=== PATIENT | male | born 1975 | race Caucasian/White ===

== ENCOUNTER 2025-02-11 12:12 | Emergency (ER) | payer OTHER, SELFPAY ==
--- NOTE | 2025-02-11 12:16 | XR_ITS ---
Examination: AP chest single view Technique one AP portable semiupright chest single view Date and time: February 11, 2025 at 1308 hrs. Comparison May 31, 2012 Indications: Shortness of breath today. Findings: Mild prominence left ventricle No pneumonia or pulmonary edema The osseous structures are intact Impression: No active disease
[2025-02-11 12:20] VITALS: BP 104/63; PULSE 66; RESP 16; TEMP 36.9; O2SAT 95; BMI 31.4
[2025-02-11] MEDS: SODIUM CHLORIDE 0.9% 1000 ML 1,000 ML 999 ML IV (12:27)
[2025-02-11 12:29] VITALS: PULSE 70; RESP 18; O2SAT 97
[2025-02-11 12:49] LABS: Basophils # (Auto) 0.1 Thou/mm3 (0.0-0.2); Basophils % (Auto) 1 % (0-2.5); Eosinophils # (Auto) 0.3 Thou/mm3 (0.0-0.5); Eosinophils % (Auto) 4 % (0-10); Hematocrit 41.1 % (41.0-53.0); Hemoglobin 14.3 g/dL (13.5-16.0); Immature Granulocytes % (Auto) 0 % (0-0); Immature Granulocytes Auto 0.01 Thou/mm3 (0.00-0.00); Lymphocytes # (Auto) 2.9 Thou/mm3 (1.0-4.8); Lymphocytes % (Auto) 45 % (10-50); Mean Corpuscular HGB Conc 34.8 g/dl (31.0-37.0); Mean Corpuscular Volume 86 fL (80-100); Monocytes # (Auto) 0.4 Thou/mm3 (0.0-0.8); Monocytes % (Auto) 6 % (0-12); Neutrophils # (Auto) 2.8 Thou/mm3 (1.8-7.7); Neutrophils % (Auto) 44 % (37-80); Nucleated Red Blood Cell % 0 /100 WBC (0); Platelet Count 202 Thou/mm3 (140-440); RDW Standard Deviation 40.8 fL (35.1-43.9); Red Blood Count 4.76 Miln/mm3 (4.50-5.90); White Blood Count 6.4 Thou/mm3 (3.8-10.6)
[2025-02-11 13:03] LABS: B-Type Natriuretic Peptide < 20 pg/mL (0-100)
[2025-02-11 13:05] LABS: Alanine Aminotransferase 22 U/L (10-49); Albumin, Serum 4.6 gm/dL (3.5-5.0); Albumin/Globulin Ratio 2.9 (1.2-2.2); Alkaline Phosphatase 77 U/L (46-116); Anion Gap 11 (7-16); Aspartate Amino Transferase 25 U/L (0-34); BUN/Creatinine Ratio 12 Ratio (12-20); Bilirubin,Total 0.3 mg/dL (0.3-1.2); Blood Urea Nitrogen 14 mg/dL (9-23); Carbon Dioxide 25.3 mMol/L (20.0-31.0); Chloride 106 mMol/L (98-107); Creatinine (Component) 1.2 mg/dL (0.6-1.3); Estimated Creatinine Clearance 94.9 mL/min (>60); Globulin 1.6 gm/dL (2.3-3.5); Glucose 138 mg/dL (74-106); Lipase 45 U/L (12-53); Magnesium 2.1 mg/dL (1.6-2.6); Osmolality,Calculated 285 (275-295); Potassium 4.3 mMol/L (3.4-5.1); Sodium 142 mMol/L (136-145); Total Protein 6.2 gm/dL (5.7-8.2); Troponin I < 0.020 ng/mL (0.0-0.045); eGFR > 60 See Note
--- NOTE | 2025-02-11 14:05 | PD.EDSYNC ---
ED Syncope RME/HPI General Chief Complaint: Syncope / Near Syncope Stated Complaint: SYNCOPAL EPISODE Time Seen by Provider: 02/11/25 12:16 Arrival date/time: 02/11/25 12:12 Limitations: no limitations RME / HPI RME / HPI narrative: 50-year-old male who is brought in by EMS after she had a syncopal episode while sitting down at a restaurant. He had no associated injuries. Patient has a history of hypertension but no other cardiovascular disease. He has no lower leg edema or shortness of breath. Has no abdominal pain, nausea, vomiting. He denies any headache, vision changes, or unilateral weakness. Patient states he drank quite a bit of alcohol last night but is had no vomiting and has no diarrhea. He had no falls or injuries. He states he normally drinks once or twice a week and when he does he has a glass of wine. He states he rarely gets intoxicated. He denies any recent surgery. Has had no recent travels. There are no other acute complaints. Related Data Home Medications ?Medication ?Instructions ?Recorded ?Confirmed hydrocodone 5 mg-acetaminophen 325 1 tab PO Q6H 05/09/19 mg tablet ([place]) lisinopril 20 mg tablet 20 mg PO QDAY 05/09/19 montelukast 10 mg tablet 10 mg PO QPM 05/09/19 Previous Rx's ?Medication ?Instructions ?Recorded cyclobenzaprine 10 mg tablet 10 mg PO Q8HR #20 tabs 05/09/19 ibuprofen 800 mg tablet 800 mg PO Q6HR #30 tabs 05/09/19 hydrocodone 5 mg-acetaminophen 325 1 tab PO BID PRN pain #10 tabs 01/21/ mg tablet Allergies Allergy/AdvReac Type Severity Reaction Status Date / Time naproxen sodium Allergy SWOLLEN LIP Verified 05/09/19 22:04 Review of Systems Review of Systems Systems Reviewed: All systems reviewed, normal except as documented ED Exam General Limitations: Present no limitations General appearance: Present alert and in no apparent distress Head Head exam: Present atraumatic Eye Eye exam: Present normal appearance, PERRL and EOMI ENT ENT exam: Present normal exam, normal oropharynx and mucous membranes moist Neck Neck exam: Present normal inspection, full ROM and trachea midline Chest Chest inspection: Present normal inspection and symmetric chest wall rise Respiratory Respiratory exam: Present normal lung sounds bilaterally Cardiovascular Cardiovascular exam: Present regular rate, normal rhythm and normal heart sounds Abdominal Exam Abdominal exam: Present soft and normal bowel sounds Extremities Exam Extremities exam: Present normal inspection and full ROM Back Exam Back exam: Present normal inspection and full ROM Neurological Exam Neurological exam: Present alert, oriented X3 and CN II-XII intact Psychiatric Psychiatric exam: Present normal affect and normal mood Skin Skin exam: Present warm, dry, intact and normal color Course Course Course Narrative: EMS reports the patient was hypotensive on scene and diaphoretic. He was answering questions appropriately. There is no evidence of injury. When patient arrived to the ER, he was given a fluid bolus and the workup was initiated. His CBC, CMP, BNP, EKG, troponin, are all unremarkable. His blood pressure has been stable throughout the ER course. He has no tachycardia and no dysrhythmia has been noted on the library aide. Patient was ambulating in the ER without assistance, his gait is stable. Case discussed with attending physician. Patient does have a primary care provider he can follow-up with. We discussed the need for outpatient workup including echocardiogram and carotid artery ultrasound. We discussed return precautions. Patient agrees to return as needed for any worsening changes or a repeat syncopal episode. Quality Measures none Orders Category Date Time Status EKG (ED ONLY) *Do not use* NOW Care 02/11/25 14:09 Active EKG (ED Only) Stat Exams 02/11/25 14:09 Ordered XR chest 1V Stat Exams 02/11/25 12:16 Completed BNP [B-Type Natriuretic Peptide] Stat Lab 02/11/25 12:22 Completed CBC Stat Lab 02/11/25 12:22 Completed CMP [Comprehensive Metabolic Panel] Stat Lab 02/11/25 12:22 Completed Lipase Stat Lab 02/11/25 12:22 Completed Magnesium Stat Lab 02/11/25 12:22 Completed Troponin I Stat Lab 02/11/25 12:22 Completed Sodium Chloride 0.9% 1000 ml [Ns] 1,000 ml Med 02/11/25 12:18 Discontinued IV 999 mls/hr Vital Signs Vital signs: Vital Signs Temperature 98.4 F 02/11/25 12:20 Pulse Rate 66 02/11/25 12:20 Respiratory Rate 16 02/11/25 12:20 Blood Pressure 104/63 02/11/25 12:20 Pulse Oximetry (%) 95 02/11/25 12:20 Oxygen Delivery Method Room Air 02/11/25 12:20 Syncope Patient data External records reviewed:: None Clinical information provided by:: patient Social determinants that could affect healthcare access:: none Patient has the following chronic illnesses:: htn How is presenting disease/condition affected by chronic disease/condition?: no chronic disease Evaluation data The following diagnostics were reviewed and interpreted by me:: lab results, radiology exam(s) (Clear spanning lungs with no evidence of pneumothoraces) and EKG tracing(s) (NSR at [address] changes or dynamic t waves) Lab and/or radiology exams considered but not ordered:: echo Interpretation Summary: No leukocytosis, no metabolic derangement, troponin is negative. EKG G as described above. Chest x-ray reveals no mass or infiltrate. Medications / Prescriptions Medications or Prescriptions considered but not ordered:: n/a Medication administrations:: Medication Administration History Discontinued Medications Sodium Chloride (Ns) 1,000 mls @ 999 mls/hr IV .Q1H1M ONE Stop: 02/11/25 13:18 Last Infusion: 02/11/25 13:30 Dose: Infused Documented By: Admin: 02/11/25 12:27 Dose: 999 mls/hr Documented By: KERI see above Consultations Consultation(s) initiated? (list below): No Diagnosis Syncope Differential Diagnosis: syncope due to orthostatic hypotension, vasovagal syncope, complete atrioventricular block and dehydration Most likely diagnosis given after review of the tests above:: Syncope Admission Indicated Admission indicated?: not indicated Admission Request Was there a request for admission?: No Disposition Plan Disposition Plan: Discharge Discharge Attestation Discharge Attestation: The patient and all family members were given an opportunity to ask questions and understood the discharge instructions. Discharge instructions specifically effects, indications for sooner follow up or return to the emergency department, and the expected course of current diagnosis. Patient condition: Stable Discharge Plan Plan Patient Disposition: HOME (Self Care) Patient condition on transfer: Stable Prescriptions/Referrals Prescriptions/Med Rec: No Action lisinopril 20 mg tablet 20 mg PO QDAY montelukast 10 mg tablet 10 mg PO QPM hydrocodone-acetaminophen [[place]] 5-325 mg tablet 1 tab PO Q6H cyclobenzaprine 10 mg tablet 10 mg PO Q8HR Qty: 20 0RF ibuprofen 800 mg tablet 800 mg PO Q6HR Qty: 30 0RF hydrocodone-acetaminophen 5-325 mg tablet 1 tab PO BID MDD 10 PRN (Reason: pain) Qty: 10 0RF Referrals: Tyrell Mistry MD [Physician] - In 1 week (syncope ) Alyson Mari MD [Primary Care Provider] - In 1 week Problem List Clinical Impression: Syncope Patient/Caregiver Discharge Instructions Education Materials: Causes of Syncope Additional Instructions: Maintain your hydration. Please follow-up with your primary doctor this week for close recheck. Please also contact cardiology to schedule follow-up appointment. You may benefit from further outpatient studies. Please return to the emergency room at anytime for any worsening or emergent changes. Print Language: Bel[place]ian Stand Alone Forms: Angela Award Info., Patient Portal Info Letter
[2025-02-11 14:51] VITALS: BP 105/65; PULSE 69; RESP 16; TEMP 36.8; O2SAT 98
[2025-02-11 15:09] VITALS: BP 109/66; PULSE 72; RESP 16; TEMP 36.6; O2SAT 98
== END 2025-02-11 15:09 | disposition home or self-care (01) ==
PROVIDERS: Physician Assistant Medical; Emergency Provider Family Medicine; PCP Family Medicine
DX: R55 Syncope and collapse (principal); I10 Essential (primary) hypertension
CPT/HCPCS: 36415; 71045; 80053; 83690; 83735; 83880; 84484; 85025; 93005; 96360; 99284; J7030

== ENCOUNTER → 2025-03-29 | Outpatient (CLI) | payer OTHER, SELFPAY ==
[2025-03-29 08:10] LABS: Collection Type, Urine Clean Catch; Squamous Epithelial Cell,Urine 0 /hpf (0-5)
[2025-03-29 08:34] LABS: Basophils # (Auto) 0.1 Thou/mm3 (0.0-0.2); Basophils % (Auto) 1 % (0-2.5); Eosinophils # (Auto) 0.2 Thou/mm3 (0.0-0.5); Eosinophils % (Auto) 4 % (0-10); Hematocrit 42.9 % (41.0-53.0); Hemoglobin 14.2 g/dL (13.5-16.0); Immature Granulocytes Auto 0.01 Thou/mm3 (0.00-0.00); Lymphocytes # (Auto) 2.4 Thou/mm3 (1.0-4.8); Lymphocytes % (Auto) 42 % (10-50); Mean Corpuscular HGB Conc 33.1 g/dl (31.0-37.0); Mean Corpuscular Hemoglobin 30.3 pg (25.0-35.0); Mean Corpuscular Volume 92 fL (80-100); Monocytes # (Auto) 0.3 Thou/mm3 (0.0-0.8); Monocytes % (Auto) 6 % (0-12); Neutrophils # (Auto) 2.7 Thou/mm3 (1.8-7.7); Neutrophils % (Auto) 47 % (37-80); Nucleated Red Blood Cell # 0.00 Thou/mm3 (0.00-0.00); Nucleated Red Blood Cell % 0 /100 WBC (0); Platelet Count 219 Thou/mm3 (140-440); RDW Standard Deviation 40.5 fL (35.1-43.9); Red Blood Count 4.69 Miln/mm3 (4.50-5.90); White Blood Count 5.7 Thou/mm3 (3.8-10.6)
[2025-03-29 09:00] LABS: Alanine Aminotransferase 18 U/L (10-49); Albumin, Serum 4.5 gm/dL (3.5-5.0); Albumin/Globulin Ratio 2.8 (1.2-2.2); Alkaline Phosphatase 58 U/L (46-116); Anion Gap 10 (7-16); Aspartate Amino Transferase 21 U/L (0-34); BUN/Creatinine Ratio 15 Ratio (12-20); Bilirubin,Total 0.4 mg/dL (0.3-1.2); Blood Urea Nitrogen 21 mg/dL (9-23); Calcium 9.7 mg/dL (8.3-10.6); Calcium (Corrected) 9.7 mg/dL (8.5-10.1); Carbon Dioxide 26.2 mMol/L (20.0-31.0); Cardiac Risk Estimate 6.4 RATIO (4.0-6.7); Chloride 108 mMol/L (98-107); Cholesterol 206 mg/dL (132-200); Creatinine (Component) 1.4 mg/dL (0.6-1.3); Globulin 1.6 gm/dL (2.3-3.5); Glucose 114 mg/dL (74-106); HDL Cholesterol 32 mg/dL (40-60); LDL Cholesterol,Calculated 160 mg/dL (0-130); Osmolality,Calculated 290 (275-295); Potassium 4.8 mMol/L (3.4-5.1); Sodium 144 mMol/L (136-145); Thyroid Stimulating Hormone 1.26 uIU/mL (0.55-4.78); Total Protein 6.1 gm/dL (5.7-8.2); Triglycerides 68 mg/dL (30-150); eGFR > 60 See Note
[2025-03-29 13:07] LABS: Bilirubin,Urine Negative (Negative); Blood,Urine Negative (Negative); Clarity,Urine Clear (Clear/Hazy); Color,Urine Lt-Yellow (Lt Yel-Yel); Glucose, Urine Negative (Negative); Ketones,Urine Negative (Negative); Leukocyte Esterase,Urine Negative (Negative); Nitrite,Urine Negative (Negative); PH,Urine 5.5 (5.0-7.0); Protein,Urine Negative (Neg - Trace); RBC,Urine 1 /hpf (0-3); Specific Gravity,Urine 1.019 (1.001-1.035); Urobilinogen,Urine Negative mg/dL (0.0-1.0); WBC,Urine 1 /hpf (0-5)
== END | disposition home or self-care (01) ==
LOC: COPL 06:45
PROVIDERS: PCP Family Medicine; Referring Provider Family Medicine; Visit Provider Family Medicine
DX: I10 Essential (primary) hypertension (principal)
CPT/HCPCS: 36415; 80053; 80061; 81001; 84443; 85025

== ENCOUNTER → 2025-06-27 | Outpatient (CLI) | payer OTHER, SELFPAY ==
[2025-06-27 08:39] LABS: Glucose Estimated Average 100 mg/dL (80-131); Hemoglobin A1C 5.1 % Hgb (4.8-6.0)
[2025-06-27 08:44] LABS: Alanine Aminotransferase 30 U/L (10-49); Albumin, Serum 5.2 gm/dL (3.5-5.0); Alkaline Phosphatase 57 U/L (46-116); Anion Gap 9 (7-16); Aspartate Amino Transferase 26 U/L (0-34); BUN/Creatinine Ratio 11 Ratio (12-20); Bilirubin,Direct 0.3 mg/dL (0.0-0.3); Bilirubin,Total 0.8 mg/dL (0.3-1.2); Blood Urea Nitrogen 13 mg/dL (9-23); Calcium 9.8 mg/dL (8.3-10.6); Carbon Dioxide 28.5 mMol/L (20.0-31.0); Cardiac Risk Estimate 3.6 RATIO (4.0-6.7); Chloride 105 mMol/L (98-107); Cholesterol 161 mg/dL (132-200); Creatinine (Component) 1.2 mg/dL (0.6-1.3); Glucose 102 mg/dL (74-106); HDL Cholesterol 45 mg/dL (40-60); LDL Cholesterol,Calculated 95 mg/dL (0-130); Osmolality,Calculated 283 (275-295); Potassium 4.9 mMol/L (3.4-5.1); Sodium 142 mMol/L (136-145); Total Protein 6.6 gm/dL (5.7-8.2); Triglycerides 107 mg/dL (30-150); eGFR > 60 See Note
== END | disposition home or self-care (01) ==
LOC: COPL 07:33
PROVIDERS: PCP Family Medicine; Referring Provider Family Medicine; Visit Provider Family Medicine
DX: N18.2 Chronic kidney disease, stage 2 (mild) (principal); R73.01 Impaired fasting glucose; E78.00 Pure hypercholesterolemia, unspecified
CPT/HCPCS: 36415; 80048; 80061; 80076; 83036